=== PATIENT | female | born 1945 | race Caucasian/White ===

== ENCOUNTER → 2021-03-08 | Outpatient (CLI) | payer MEDICARE, BC | LOC: RAD 08:47 | DX: K11.8 Other diseases of salivary glands (principal); K11.6 Mucocele of salivary gland ==

== ENCOUNTER → 2021-03-21 | Outpatient (CLI) | payer MEDICARE, BC | LOC: RAD 13:00 | DX: K11.8 Other diseases of salivary glands (principal) | CPT/HCPCS: 15991 ==

== ENCOUNTER → 2024-09-15 | Outpatient (CLI) | payer MEDICARE, BC | LOC: MAMMO 10:44 | DX: Z12.31 Encounter for screening mammogram for malignant neoplasm of breast (principal) ==